=== PATIENT | male | born 1990 | race Caucasian/White ===

== ENCOUNTER → 2017-02-25 | Outpatient (CLI) | payer BC ==
[~2017-02-25] VITALS: Ht 177.8 cm; Wt 93.4 kg
[~2017-02-25] MED LIST: ASCO1CAP3 PO; GABA1CAP5 PO; LACTATED RINGER'S 1000ML 1,000 ML IV SCH; MULT1CAP17 PO; NAUSEA PO; OXYC-57 PO
[2017-02-25 09:29] VITALS: Ht 177.8 cm; Wt 93.4 kg
--- NOTE | 2017-02-25 10:00 | PAT Medication Instructions ---
Service Date Feb 25, 2017. Current Home Medication List Ascorbic Acid (Vitamin C), 500 MG PO QAM Gabapentin (Neurontin), 400 MG PO BID PRN for RN Multiple Vitamins W/ Minerals (Multi For Him), 1 TAB PO QAM Medication Instructions For Your Scheduled Surgery - Hold the following medications the morning of surgery: Ascorbic Acid (Vitamin C), 500 MG PO QAM Multiple Vitamins W/ Minerals (Multi For Him), 1 TAB PO QAM - Take the following medications the morning of surgery with a sip of water OTHERWISE NOTHING TO EAT OR DRINK AFTER MIDNIGHT: Gabapentin (Neurontin), 400 MG PO BID PRN - Take the following medications as scheduled the night before surgery: Gabapentin (Neurontin), 400 MG PO BID PRN If you have any questions please call us at [phone] or [phone] or [phone]
[2017-02-25 10:43] LABS: BASO % 0.5 %; BASO ABS # 0.03 K/uL (0-0.2); EOS % 1.6 %; HEMATOCRIT 44.4 % (42-52); HEMOGLOBIN 15.2 g/dL (14.0-18.0); IG# 0.03 K/uL (0.00-0.02); LYMPH % 33.2 %; MEAN CELL VOLUME 90.6 fL (80-100); MEAN CORPUSCULAR HGB CONC 34.2 g/dl (32-36); MEAN PLATELET VOLUME 9.5 fL (7.4-10.4); MONO % 7.3 %; MONO ABS # 0.46 K/uL (0.11-0.59); NEUT % 56.9 %; PLATELET COUNT 358 K/uL (130-400); RED CELL DISTRIBUTION WIDTH CV 12.2 % (11.5-14.5); RED CELL DISTRIBUTION WIDTH SD 40.4 fL (36.4-46.3); WHITE BLOOD COUNT 6.32 K/uL (4.8-10.8)
--- NOTE | 2017-02-25 11:10 | DIAGNOSTIC IMAGING REPORT ---
CHEST 2 VIEWS ROUTINE HISTORY: 26 years-old Male pat preoperative exam. No acute chest complaints. COMPARISON: None available TECHNIQUE: 2 views of the chest FINDINGS: Cardiomediastinal and hilar silhouettes are within normal limits. There is no pneumothorax, pleural effusion, focal airspace consolidation or overt pulmonary edema. Bones of the chest are grossly intact. IMPRESSION: No acute cardiopulmonary process. The above report was generated using voice recognition software. It may contain grammatical, syntax or spelling errors. Electronically signed by: Celso Coffey M.D. 02/25/2017 11:09 AM Dictated Date/Time: 02/25/2017 11:08 AM
[2017-02-25 11:44] LABS: CALCIUM 9.1 mg/dl (8.5-10.1); CREATININE 0.91 mg/dl (0.60-1.40); POTASSIUM 4.2 mmol/L (3.5-5.1)
== END | disposition home or self-care (01) ==
LOC: C.LAB 08:00 → EDSTATUS 03-18 12:41
PROVIDERS: ATTEND Orthopaedic Surgery Orthopaedic Surgery of the Spine
DX: Z01.812 Encounter for preprocedural laboratory examination (principal); Z01.810 Encounter for preprocedural cardiovascular examination; Z01.811 Encounter for preprocedural respiratory examination

== ENCOUNTER 2017-05-03 10:46 | Day surgery (SDC) | payer BC ==
[2017-05-02 12:05] VITALS: Ht 180.3 cm; Wt 97.3 kg
[~2017-05-03] VITALS: Ht 180.3 cm; Wt 97.3 kg
[~2017-05-03 10:46] MED LIST changes: -ASCO1CAP3 PO; +ATROPINE SULFATE 0.1 MG/ML 5ML SYR IV PRN; +CEFAZOLIN 2000MG IV PUSH 15 ML IV SCH; +EpHEDrine SULFATE INJ 50 MG/ML AMP IV PRN; +FENTANYL CITRATE INJ 50 MCG/1 ML 2 ML VIAL IV PRN; +FENTANYL CITRATE INJ 50 MCG/1 ML 2 ML VIAL ONE; -GABA1CAP5 PO; +LIDOCAINE HCL 2% 2 ML VIAL (20MG/ML) ONE; +MIDAZOLAM HCL 1 MG/ML 2ML VIAL ONE; -MULT1CAP17 PO; +ONDANSETRON INJ 2 MG/ML 2 ML VIAL IV PRN; -OXYC-57 PO; +PROPOFOL IV EMULSION 10 MG/ML 20 ML VIAL IV ONE
[2017-05-03 11:22] VITALS: BP 121/71; PULSE 77; TEMP 36.8; O2SAT 96
[2017-05-03] MEDS ORDERED: MIDAZOLAM HCL 1 MG/ML 2ML VIAL ONE (11:23)
[2017-05-03] MEDS ORDERED: FENTANYL CITRATE INJ 50 MCG/1 ML 2 ML VIAL ONE (11:23)
[2017-05-03 11:32] LABS: BASO % 0.4 %; BASO ABS # 0.02 K/uL (0-0.2); EOS % 1.9 %; EOS ABS # 0.11 K/uL (0-0.5); HEMATOCRIT 42.5 % (42-52); HEMOGLOBIN 14.7 g/dL (14.0-18.0); IG# 0.01 K/uL (0.00-0.02); LYMPH % 34.4 %; LYMPH ABS # 1.96 K/uL (1.2-3.4); MEAN CELL VOLUME 89.7 fL (80-100); MEAN PLATELET VOLUME 9.5 fL (7.4-10.4); MONO % 9.8 %; MONO ABS # 0.56 K/uL (0.11-0.59); NEUT % 53.3 %; NEUT ABS # 3.04 K/uL (1.4-6.5); PLATELET COUNT 312 K/uL (130-400); RED CELL DISTRIBUTION WIDTH CV 12.4 % (11.5-14.5); RED CELL DISTRIBUTION WIDTH SD 40.4 fL (36.4-46.3)
--- NOTE | 2017-05-03 11:32 | History & Physical Bridge Note ---
H&P Re-Evaluation Bridge Note: I have examined the patient, reviewed the History & Physical and in the interval since the performance of the History & Physical I have noted the following changes of clinical significance: No changes noted
--- NOTE | 2017-05-03 11:33 | History and Physical ---
History & Physical Date May 03, 2017. Chief Complaint Back and leg pain History of Present Illness The patient is a 26 year old male with complaints of back and leg pain Additional History Hepatic Disease: No Endocrine Disorder: No Kidney Disease: No Hypertension: No Heart Disease: No Bleeding Tendencies: No Infectious Diseases: No Allergies Coded Allergies: Food (Verified Allergy, Unknown, ANY MINT FLAVORING OR MINT IN GUM, TOOTHPASTE ETC-GI UPSET,, 05/03/17) DIZZY NO KNOWN DRUG ALLERGIES (Verified Allergy, Unknown, NONE, 05/03/17) Home Medications Scheduled [Nausea], 1 TAB PO PRN Physical Examination Skin: warm/dry, no rash Eyes: normal inspection, EOMI, sclerae normal ENT: normal ENT inspection, pharynx normal Head: normocephalic, atraumatic Neck: supple, no adenopathy, trachea midline Respiratory/Chest: lungs clear, normal breath sounds, no respiratory distress Cardiovascular: regular rate, rhythm, no edema, no murmur Abdomen / GI: normal bowel sounds, non tender Back: normal inspection Extremities: normal inspection, normal range of motion Neurologic/Psych: no motor/sensory deficits, alert, normal reflexes, oriented x 3 Diagnosis Herniated nucleus pulposus L5-S1 Plan of Treatment Lumbar laminotomy L5-S1
[2017-05-03 11:41] LABS: MEAN CORPUSCULAR HGB CONC 34.6 g/dl (32-36)
[2017-05-03 11:54] LABS: CALCIUM 8.8 mg/dl (8.5-10.1); CREATININE 0.91 mg/dl (0.60-1.40)
[2017-05-03] MEDS ORDERED: BUPIVACAINE/EPINEPHRINE 0.5% MPF 1:200,000 30 ML VIAL ONE (11:56)
[2017-05-03] MEDS ORDERED: BACITRACIN 50000 UNIT VIAL ONE (11:56)
[2017-05-03] MEDS ORDERED: HYDROmorphone INJ 2 MG/ML SYR/VIAL ONE ×2 (12:41→13:05)
[2017-05-03] MEDS ORDERED: PROPOFOL IV EMULSION 10 MG/ML 20 ML VIAL IV ONE (12:48)
[2017-05-03] MEDS ORDERED: ONDANSETRON INJ 2 MG/ML 2 ML VIAL ONE ×2 (12:48→13:26)
[2017-05-03] MEDS ORDERED: DEXAMETHASONE SOD INJ 4 MG/ML VIAL ONE (12:48)
[2017-05-03] MEDS ORDERED: LIDOCAINE HCL 2% 2 ML VIAL (20MG/ML) ONE (12:48)
[2017-05-03] MEDS ORDERED: FLOSEAL HEMOSTATIC MATRIX 5ML TOP ONE (12:58)
--- NOTE | 2017-05-03 13:03 | [facility] Operative Report ---
Operative Report Operative Date May 03, 2017. Pre-Operative Diagnosis Herniated nucleus pulposus L5-S1 Post-Operative Diagnosis Herniated nucleus pulposus L5-S1 Procedure(s) Performed Right L5-S1 Laminectomy Surgeon Dr. Claude Lr Hair Boiler Surgeon(s) Julián Albert PA-C Estimated Blood Loss 10ml Findings Herniated nucleus pulposus Specimens A.) Right L5-S1 Disc Anesthesia Type General Description of Procedure Case discussed all questions addressed. After informed consent obtained patient was taken to the operative suite underwent intubation and placed in the prone position on the Heriberto table on top of the Alexis frame. All bony prominences were well-padded eyes inspected to ensure no external pressure placed upon them. This point the lumbar spine was prepped and draped in normal sterile fashion. With the assistance of fluoroscopy identified the L5-S1 disc space. A midline incision was created overlying this region. Sharp dissection with the assistance of Bovie electrocautery was performed down to and exposing exposing the interlaminar space at L5-S1 on the right. A self retaining retractor was placed. Then performed a small laminotomy excising lateral portion of the ligamentum flavum to expose a severely compressed traversing S1 nerve root. This was mobilized medially and a massive fragment of disc material noted directly under the root. It was removed in its entirety. The area was explored several times to ensure all loose fragments addressed. Then after copiously irrigating the incision was closed with 1 Vicryl in the fascia 2 -0 Vicryl substantially 4-0 Monocryl for final skin closure Steri-Strips dressings placed. Patient will continue PACU stable condition. Please note Sal Albert was present at the entire procedure involved in patient positioning complex portions of the surgery and final skin closure. I attest to the content of the Intraoperative Record and any orders documented therein. Any exceptions are noted below.
[2017-05-03] MEDS ORDERED: OXYC-57 PO (13:05)
--- NOTE | 2017-05-03 13:06 | Discharge Instructions ---
Discharge Instructions Date of Service May 03, 2017. Admission Reason for Admission: Lumbar Spinal Stenosis, Herniated Disc L5-S1 Discharge Discharge Diagnosis / Problem: lumbar disk herniation Discharge Goals Goal(s): Improve function Activity Recommendations Activity Limitations: resume your previous activity . Current Hospital Diet Patient's current hospital diet: Discharge Diet Recommended Diet: Regular Diet Procedures Procedures Performed: Right L5-S1 Laminectomy Pending Studies Studies pending at discharge: no Medical Emergencies . Who to Call and When: Medical Emergencies: If at any time you feel your situation is an emergency, please call 911 immediately. . Non-Emergent Contact Non-Emergency issues call your: Primary Care Provider . "Provider Documentation" section prepared by Claude Lr. . VTE Core Measure Inpt VTE Proph given/why not?: Noemi Hagan, SCD's
[2017-05-03] MEDS ORDERED: HYDROmorphone INJ 1 MG/ML SYR IV PRN (13:15)
[2017-05-03] MEDS ORDERED: ACETAMINOPHEN 325 MG TAB PO PRN (13:15)
[2017-05-03] MEDS ORDERED: KETOROLAC TROMETHAMINE 30 MG/ML VIAL IV. PRN (13:15)
[2017-05-03] MEDS ORDERED: OXYCODONE HCL IR 5 MG TAB (IMMEDIATE RELEASE) PO PRN (13:15)
--- NOTE | 2017-05-03 13:22 | DIAGNOSTIC IMAGING REPORT ---
SPINE ONE VIEW, ANY LEVEL CLINICAL HISTORY: L5-S1 microdiscectomy COMPARISON STUDY: No previous studies for comparison. FINDINGS: 5 seconds of fluoroscopic time was utilized. A single intraoperative fluoroscopic spot images provided for interpretation. This reveals a metallic probe projected over the posterior aspect of the L5-S1 disc. IMPRESSION: Intraoperative localization radiograph with a metallic probe at the L5-S1 level Electronically signed by: Good Juarez M.D. 05/03/2017 1:21 PM Dictated Date/Time: 05/03/2017 1:20 PM
[2017-05-03] MEDS ORDERED: GLYCOPYRROLATE INJ 0.2 MG/ML VIAL ONE (13:26)
[2017-05-03] MEDS ORDERED: NEOSTIGMINE METHYLSULFATE 1 MG/ML 10ML VIAL ONE (13:26)
[2017-05-03] MEDS ORDERED: KETOROLAC TROMETHAMINE 30 MG/ML VIAL ONE (13:26)
--- NOTE | 2017-05-03 14:25 | Anesthesiology Progress Note ---
Anesthesia Post Op Note Date & Time May 03, 2017 at 14:25 Vital Signs Pain Intensity: 0 Vital Signs Past 12 Hours Date Time Temp Pulse Resp B/P (MAP) Pulse Ox O2 Delivery O2 Flow Rate FiO2 05/03/17 14:01 128/81 05/03/17 14:00 88 17 05/03/17 14:00 87 17 97 18 13:59 36.1 05/03/17 13:56 123/78 05/03/17 13:55 88 22 99 18 13:55 89 22 05/03/17 13:54 90 16 99 18 13:54 90 16 05/03/17 13:51 130/83 05/03/17 13:49 96 19 05/03/17 13:49 95 19 100 05/03/17 13:48 87 15 100 05/03/17 13:48 87 15 05/03/17 13:46 125/80 05/03/17 13:43 74 16 100 05/03/17 13:43 76 16 05/03/17 13:42 75 19 100 18 13:42 76 19 18 13:41 124/75 18 13:37 97 15 100 18 13:37 97 15 18 13:36 129/77 18 13:34 94 17 100 18 13:34 93 17 18 13:33 89 19 118/79 99 18 13:33 92 19 18 13:31 118/79 18 13:28 75 12 18 13:28 75 12 100 18 13:26 128/81 18 13:23 72 18 13:23 72 118/79 100 /2/18 13:23 36.5 75 16 118/79 100 Oxymask 8 18 11:22 36.8 77 20 121/71 (88) 96 Room Air Notes Mental Status: alert / awake / arousable, participated in evaluation Pt Amnestic to Procedure: Yes Nausea / Vomiting: adequately controlled Pain: adequately controlled Airway Patency, RR, SpO2: stable & adequate BP & HR: stable & adequate Hydration State: stable & adequate Anesthetic Complications: no major complications apparent
[2017-05-03 15:10] VITALS: BP 129/75; PULSE 100; TEMP 36.6; O2SAT 97
== END 2017-05-03 15:32 | disposition home or self-care (01) ==
LOC: C.ACU 10:46
PROVIDERS: ATTEND Orthopaedic Surgery Orthopaedic Surgery of the Spine
DX: M51.27 Other intervertebral disc displacement, lumbosacral region (principal)